=== PATIENT | male | born 1985 | race African-American/Black ===

== ENCOUNTER 2016-07-31 17:32 | Emergency (ER) | payer OTHER ==
[~2016-07-31] VITALS: Ht 167.6 cm; Wt 110.0 kg
[~2016-07-31 17:32] MED LIST: CHLO.12%30 SSP; CLIN150 PO; IBUP800T23 PO
[2016-07-31 17:34] VITALS: BP 130/62; PULSE 85; RESP 16; TEMP 97.8; O2SAT 98
[2016-07-31] MEDS ORDERED: DICL50TA3 PO (19:21)
[2016-07-31] MEDS ORDERED: CYCL1TAB29 PO (19:21)
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
[2016-07-31] MEDS ORDERED: CYCLOBENZAPRINE HCL 10 MG TAB PO ONE (19:30)
[2016-07-31] MEDS ORDERED: NAPROXEN 500 MG TAB PO ONE (19:30)
== END 2016-07-31 19:54 | disposition home or self-care (01) ==
LOC: NEPB 17:32
DX: S30.0XXA Contusion of lower back and pelvis, initial encounter (principal); S40.021A Contusion of right upper arm, initial encounter; V43.92XA Unspecified car occupant injured in collision with other type car in traffic accident, initial encounter
CPT/HCPCS: 99283

== ENCOUNTER 2016-09-07 00:19 | Emergency (ER) | payer SELFPAY ==
[~2016-09-07] VITALS: Ht 170.2 cm; Wt 106.0 kg
[~2016-09-07 00:19] MED LIST changes: +CYCL1TAB29 PO; +DICL50TA3 PO
[2016-09-07 00:23] VITALS: BP 140/74; PULSE 90; RESP 16; TEMP 97.5; O2SAT 100
[2016-09-07] MEDS ORDERED: HYDR-3533 PO (00:35)
[2016-09-07] MEDS ORDERED: AMOX500T PO (00:35)
--- NOTE | 2016-09-07 00:38 | PD ---
HPI Chief Complaint: Oral / Dental Pain or Problem Time Seen by Provider: 00:36 Travel History International Travel<30 days: No Contact w/Intl Traveler<30days: No Traveled to known affect area: No History of Present Illness HPI 31-year-old black male presents emergency Department with complaints of dental pain. He states that in the last 2 days she's had increasing left mandibular pain and swelling. He's had multiple dental caries in the past. Symptoms are moderate. He took one of his mother's Percocet earlier today for pain. He denies any fever or chills. No difficulty swallowing. No swelling of the floor mouth. PFSH Past Medical History Narrative Medical Dental abscess Tetanus Vaccination: < 5 Years Past Surgical History Surgical History: No Previous Surgery Social History Alcohol Use: Yes Tobacco Use: Yes Substance Use: No Allergies-Medications (Allergen,Severity, Reaction): Coded Allergies: No Known Allergies (Unverified , 09/07/16) Reported Meds & Prescriptions Reported Meds & Active Scripts Active Lortab (Hydrocodone-Acetaminophen) 5-325 Mg Tab 1 Tab PO Q4H PRN Amoxicillin 500 Mg Tab 1,000 Mg PO BID Flexeril (Cyclobenzaprine HCl) 10 Mg Tab 10 Mg PO TID Diclofenac Sodium DR (Diclofenac Sodium) 50 Mg Tabdr 50 Mg PO TID Ibuprofen 800 Mg Tab 800 Mg PO TID PRN Peridex Oral Rinse (Chlorhexidine Gluconate) 0.12 % Moni 15 Ml SSP BID 10 Days Cleocin (Clindamycin HCl) 150 Mg Cap 300 Mg PO Q6 10 Days Review of Systems Except as stated in HPI: all other systems reviewed are Neg General / Constitutional: No: Fever Eyes: No: Diploplia, Visual changes HENT: Positive: Dental Difficulties, No: Ear Discharge, Earache Cardiovascular: No: Chest Pain or Discomfort, Palpitations Respiratory: No: Cough, Shortness of Breath Gastrointestinal: No: Nausea, Vomiting Physical Exam Narrative GENERAL: Well-developed, well-nourished in no acute distress. Nontoxic appearing. HEAD: Patient has some mild swelling of the left lower mandible EYES: Pupils equal round and reactive. Extraocular motions intact. No scleral icterus. No injection or drainage. ENT: TMs clear without erythema. The external auditory canals clear. Nose: clear . Posterior pharynx is pink and moist. No tonsillar edema or exudate. Uvula midline. Airway patent. Patient has diffuse periodontal disease. He has multiple dental caries decayed to the gumline in the left lower mandible. There are some gingival edema, erythema and tenderness. There is some swelling of the mucosa. NECK: Trachea midline.Supple, nontender, moves head freely. No central bony tenderness or spasm. CARDIOVASCULAR: Regular rate and rhythm without murmurs, gallops, or rubs. RESPIRATORY: Clear to auscultation. Breath sounds equal bilaterally. No wheezes , rales, or rhonchi. GASTROINTESTINAL: Abdomen soft, non-tender, nondistended. No hepato-splenomegaly , or palpable masses. No guarding. EXTREMITIES: No clubbing, cyanosis, or edema. No joint tenderness, effusion, or edema noted. BACK: Nontender without deformity or crepitance. No flank tenderness. Data Data Last Documented VS Vital Signs Date Time Temp Pulse Resp B/P Pulse Ox O2 Delivery O2 Flow Rate FiO2 09/07/16 00:23 97.5 90 16 140/74 100 Room Air MDM Medical Decision Making Medical Screen Exam Complete: Yes Emergency Medical Condition: Yes Medical Record Reviewed: Yes Differential Diagnosis MDM: Moderate Differential diagnoses: Dental abscess, dental caries, osteitis, cellulitis Narrative Course Patient given amoxicillin 1 g by mouth and Lortab 5 a grams by mouth. Diagnosis Primary Impression: Dental abscess Additional Impression: Dental caries Patient Instructions: Narcotic given in the ED, General Instructions Additional Instructions: Rest. [place] gargles. [place] oil on cotton balls. 3 Advil every 6 hours. Amoxicillin and Lortab. follow-up with a dentist as soon as possible. And return to the ER if any problems. Med/Other Pt SpecificInfo: Prescription(s) given Scripts Hydrocodone-Acetaminophen (Lortab)5-325 Mg Tab1 Tab PO Q4H PRN (PAIN) #12 TAB Prov:Alvin France MD 09/07/16 Amoxicillin 500 Mg Tab1,000 Mg PO BID #40 TAB Prov:Alvin France MD 09/07/16 Disposition: 01 DISCHARGE HOME Condition: Stable Vinnie GimenezReba JERONIMO Sep 07, 2016 00:38
[2016-09-07] MEDS ORDERED: ACETAMINOPHEN/HYDROcodone 325 MG/5 MG TAB PO ONE (00:45)
[2016-09-07] MEDS ORDERED: AMOXICILLIN (TRIHYDRATE) 500 MG CAP PO ONE (00:45)
== END 2016-09-07 00:51 | disposition home or self-care (01) ==
LOC: NEPB 00:19
DX: K04.7 Periapical abscess without sinus (principal); K02.9 Dental caries, unspecified
CPT/HCPCS: 99282

== ENCOUNTER 2017-01-02 23:52 | Emergency (ER) | payer SELFPAY ==
[~2017-01-02 23:52] MED LIST changes: +AMOX500T PO; +HYDR-3533 PO
[2017-01-02 23:55] VITALS: BP 131/77; PULSE 123; RESP 16; TEMP 98.4; O2SAT 96
== END 2017-01-03 01:35 | disposition left against medical advice (07) ==
LOC: NED 23:52
DX: R22.0 Localized swelling, mass and lump, head (principal)
CPT/HCPCS: 99281

== ENCOUNTER 2017-01-05 19:57 | Emergency (ER) | payer SELFPAY ==
[2017-01-05 19:59] VITALS: BP 132/72; PULSE 89; RESP 16; TEMP 98.7; O2SAT 98
[2017-01-05] MEDS ORDERED: KETOROLAC TROMETHAMINE 60 MG/2 ML (IM) VIAL IM ONE (21:45)
[2017-01-05] MEDS ORDERED: CLINDAMYCIN 150 MG CAP PO ONE (21:45)
[2017-01-05] MEDS ORDERED: CLIN1CAP6 PO (21:59)
[2017-01-05] MEDS ORDERED: IBUP-232 PO (21:59)
[2017-01-05] MEDS ORDERED: PERC5TAB12 PO (21:59)
[2017-01-05] MEDS ORDERED: LACTCAP8 PO (21:59)
--- NOTE | 2017-01-05 22:09 | PD ---
HPI Chief Complaint: Facial Pain or Swelling Time Seen by Provider: 21:29 Travel History International Travel<30 days: No Contact w/Intl Traveler<30days: No Traveled to known affect area: No History of Present Illness HPI Patient is a 31-year-old male who presents to emergency with complaints of left- sided dental abscess. He reports that he had similar symptoms in August, reports that it started with the broken tooth, that he has not been able to follow-up with a dentist yet. Patient reports that on Wednesday, he noticed increased swelling into his left lower jaw. Patient denies any fevers or chills , reports increased pain and swelling to his left lower mandible. PFSH Past Medical History Medical History: Denies Significant Hx Diminished Hearing: No Past Surgical History Surgical History: No Previous Surgery Social History Alcohol Use: Yes Tobacco Use: Yes Substance Use: No Allergies-Medications (Allergen,Severity, Reaction): Coded Allergies: No Known Allergies (Unverified , 01/05/17) Reported Meds & Prescriptions Reported Meds & Active Scripts Active No Active Prescriptions or Reported Medications Review of Systems HENT: Positive: Other (tooth pain, left lower jaw pain) Physical Exam Narrative GENERAL: Well-nourished, well-developed patient. SKIN: Focused skin assessment warm/dry. HEAD: Normocephalic. EYES: No scleral icterus. No injection or drainage. NECK: Supple, trachea midline. No JVD or lymphadenopathy. Mouth: Patient with swelling to the left lower mandible, no trismus, patient with no airway involvement, uvula is midline with no swelling, airway is open and patent, patient with poor dentition and dental fractures to his lower posterior molars CARDIOVASCULAR: Regular rate and rhythm without murmurs, gallops, or rubs. RESPIRATORY: Breath sounds equal bilaterally. No accessory muscle use. GASTROINTESTINAL: Abdomen soft, non-tender, nondistended. Data Data Last Documented VS Vital Signs Date Time Temp Pulse Resp B/P Pulse Ox O2 Delivery O2 Flow Rate FiO2 01/05/17 19:59 98.7 89 16 132/72 98 Orders Ketorolac Inj (Toradol Inj) (01/05/17 21:45) Clindamycin (Cleocin) (01/05/17 21:45) MDM Medical Decision Making Medical Screen Exam Complete: Yes Emergency Medical Condition: Yes Interpretation(s) Vital Signs Date Time Temp Pulse Resp B/P Pulse Ox O2 Delivery O2 Flow Rate FiO2 01/05/17 19:59 98.7 89 16 132/72 98 Differential Diagnosis Differential includes dental abscess vs ludwigs angina (though unlikely), dental infection Narrative Course Patient is a 31-year-old male who presents to emergency with complaints of left- sided dental abscess. He reports that he had similar symptoms in August, reports that it started with the broken tooth, that he has not been able to follow-up with a dentist yet. Patient reports that on Wednesday, he noticed increased swelling into his left lower jaw. Patient denies any fevers or chills , reports increased pain and swelling to his left lower mandible. Vital Signs Date Time Temp Pulse Resp B/P Pulse Ox O2 Delivery O2 Flow Rate FiO2 01/05/17 19:59 98.7 89 16 132/72 98 Vital signs stable. Plan to start patient on clindamycin. Patient understands need to take probiotics with his antibiotics. Patient understood the importance of following up with a dentist as soon as possible. Patient will return to emergency room if he develops any fevers or chills or worsening symptoms. Diagnosis Primary Impression: Dental abscess Patient Instructions: General Instructions Additional Instructions: Please follow up with your dentist as soon as possible Please take full course of antibiotics Return to ER if symptoms worsen or progress or if you develop fever/chills Return to ER as needed Do not drive or operate heavy machinery while taking narcotic pain medications Med/Other Pt SpecificInfo: Prescription(s) given Scripts Oxycodone-Acetaminophen (Percocet)5-325 mg Tab1 Tab PO Q6H PRN (PAIN) #12 TAB Ref 0 Prov:Neena Cherry DO 01/05/17 Ibuprofen 600 Mg [id number] Mg PO Q6H PRN (Pain/Inflammation) #40 TAB Ref 0 Prov:Neena Cherry DO 01/05/17 Lactobacillus Acidophilus (Probiotic)1 Cap Cap1 Cap PO TIDAC #30 CAP Ref 0 Prov:Neena Cherry DO 01/05/17 Clindamycin 300 Mg [id number] Mg PO Q6H 10 Days Ref 0 Prov:Neena Cherry DO 01/05/17 Disposition: 01 DISCHARGE HOME Condition: Stable Neena Cherry DO Jan 05, 2017 22:09
[2017-01-05] MEDS ORDERED: TETANUS/DIPHTHERIA TOXOID ADULT 0.5 ML VIAL IM ONE (22:15)
== END 2017-01-05 22:33 | disposition home or self-care (01) ==
LOC: NEPD 19:57
DX: K04.7 Periapical abscess without sinus (principal); Z23 Encounter for immunization; Z72.0 Tobacco use
CPT/HCPCS: 90471; 90714; 96372

== ENCOUNTER 2017-01-25 20:49 | Emergency (ER) | payer SELFPAY ==
[~2017-01-25 20:49] MED LIST changes: -AMOX500T PO; -CHLO.12%30 SSP; -CLIN150 PO; +CLIN1CAP6 PO; -CYCL1TAB29 PO; -DICL50TA3 PO; -HYDR-3533 PO; +IBUP-232 PO; -IBUP800T23 PO; +LACTCAP8 PO; +PERC5TAB12 PO
[2017-01-25 20:50] VITALS: BP 131/69; PULSE 114; RESP 16; TEMP 99.5; O2SAT 96
== END 2017-01-25 21:49 | disposition left against medical advice (07) ==
LOC: NED 20:49
DX: J02.9 Acute pharyngitis, unspecified (principal)
CPT/HCPCS: 99281

== ENCOUNTER 2017-03-26 05:51 | Emergency (ER) | payer SELFPAY ==
[~2017-03-26] VITALS: Ht 170.2 cm; Wt 113.5 kg
[2017-03-26 05:54] VITALS: BP 143/68; PULSE 97; RESP 16; TEMP 98.3; O2SAT 98
--- NOTE | 2017-03-26 06:12 | PD ---
HPI Chief Complaint: Injury Time Seen by Provider: 06:02 Travel History International Travel<30 days: No Contact w/Intl Traveler<30days: No Traveled to known affect area: No History of Present Illness HPI The patient is a 32-year-old [place] male who presents to the emergency department for left shoulder pain. The patient was wrestling with his roommate earlier tonight approximately 1 AM when he fell on his left shoulder and heard a "pop". The patient complains of pain over the superior aspect left shoulder that is worse with movement but still present at rest. The patient thinks he may have previously hurt his shoulder when he was in high school complaint football. He denies any previous dislocations to the left shoulder or fractures of the left clavicle or left humerus. The patient is right-hand dominant. He denies any current headache, neck pain, or weakness to left upper extremity. Patient's pain is moderate, worse with movement, slightly alleviated at rest. He denies any numbness or tingling of the left upper extremity. [facility] Past Medical History Medical History: Denies Significant Hx Diminished Hearing: No Tetanus Vaccination: < 5 Years Influenza Vaccination: Yes Past Surgical History Surgical History: No Previous Surgery Social History Alcohol Use: Yes Tobacco Use: Yes Substance Use: No Allergies-Medications (Allergen,Severity, Reaction): Coded Allergies: No Known Allergies (Unverified , 03/26/17) Reported Meds & Prescriptions Reported Meds & Active Scripts Active Review of Systems Except as stated in HPI: all other systems reviewed are Neg HENT: No: Headaches, Neck Pain Cardiovascular: No: Chest Pain or Discomfort Respiratory: No: Shortness of Breath Gastrointestinal: No: Nausea, Vomiting Musculoskeletal: Positive: Limited ROM, Pain Neurologic: No: Paresthesia, Sensory Disturbance Physical Exam Narrative GENERAL: Awake, alert, pleasant 32-year-old male who appears his stated age and is in no acute respiratory distress. SKIN: Focused skin assessment warm/dry. Multiple tattoos noted. HEAD: Atraumatic. Normocephalic. EYES: No injection or drainage. ENT: No nasal bleeding or discharge. Breath smells of alcohol. NECK: Trachea midline. No JVD. MUSCULOSKELETAL: Patient has tenderness to palpation over the left acromioclavicular joint. No tenderness of the proximal two thirds of the left clavicle. He is able to abduct the shoulder on the left to 45. He is able flex and extend the left elbow, but has limited range of motion with extension left shoulder. He is able flex and extend the left hand. Intrinsic hand muscles are intact on the left hand. Positive left radial pulse. NEUROLOGICAL: Awake and alert. No obvious cranial nerve deficits. Motor grossly within normal limits. Normal speech. Sensation is intact with radial, median, and ulnar distribution of the left hand. PSYCHIATRIC: Appropriate mood and affect; insight and judgment normal. Data Data Last Documented VS Vital Signs Date Time Temp Pulse Resp B/P (MAP) Pulse Ox O2 Delivery O2 Flow Rate FiO2 03/26/17 05:54 98.3 97 16 143/68 (93) 98 Room Air Orders Orders Shoulder, Limited(2vws) (03/26/17 ) Ibuprofen (Advil) (03/26/17 06:15) MDM Medical Decision Making Medical Screen Exam Complete: Yes Emergency Medical Condition: Yes Medical Record Reviewed: Yes Interpretation(s) X-ray the left shoulder reveals acromioclavicular joint separation. Differential Diagnosis Differential diagnosis includes acromioclavicular separation, clavicle fracture , dislocation, subluxation, fracture, hematoma, contusion, sprain, strain. Narrative Course X-ray of the left shoulder was obtained. The patient was administered ibuprofen 600 mg orally for pain. X-ray reveals acromioclavicular joint separation. The patient was placed in a sling. The patient will be discharged on pain medications, is advised ice the area, activity as tolerated, follow-up with orthopedics. Diagnosis Primary Impression: Acromioclavicular joint separation Qualified Codes: S43.102A - Unspecified dislocation of left acromioclavicular joint, initial encounter Patient Instructions: General Instructions Additional Instructions: Sling as directed. Range of motion exercises daily. Ice to the affected area. Pain medications as directed. Follow-up with orthopedics. Med/Other Pt SpecificInfo: Prescription(s) given Scripts Hydrocodone-Acetaminophen ([place]) 5-325 mg Tab 1 TAB PO Q6H Y for PAIN, #12 TAB 0 Refills Prov: Alvin France MD 03/26/17 Ibuprofen (Ibuprofen) 600 Mg Tab 600 MG PO Q6H Y for Pain/Inflammation, #20 TAB 0 Refills Prov: Alvin France MD 03/26/17 Disposition: 01 DISCHARGE HOME Condition: Stable Alvin France MD Mar 26, 2017 06:12
[2017-03-26] MEDS ORDERED: IBUPROFEN 200 MG TAB PO ONE (06:15)
--- NOTE | 2017-03-26 06:33 | RADRPT ---
EXAM DATE/TIME: 03/26/2017 06:20 [facility] COMPARISON: No previous studies available for comparison. INDICATIONS : Left shoulder pain due to trauma. MEDICAL HISTORY : None. SURGICAL HISTORY : None. ENCOUNTER: Initial ACUITY: 1 day PAIN SCORE: 10/10 LOCATION: Left upper extremity Shoulder FINDINGS: 2 views of left shoulder show mild elevation of the distal clavicle relative to the acromion. The cor acoclavicular and acromioclavicular distances are preserved. No acute fractures. Glenohumeral joint u nremarkable. Soft tissues are unremarkable. CONCLUSION: A.c. joint separation. Luis Beckham Jr., MD on March 26, 2017 at 6:30 Board Certified Radiologist. This report was verified electronically.
[2017-03-26] MEDS ORDERED: NORC5TAB PO (06:45)
[2017-03-26] MEDS ORDERED: IBUP-232 PO (06:45)
== END 2017-03-26 07:07 | disposition home or self-care (01) ==
LOC: NEPE 05:51
DX: S43.102A Unspecified dislocation of left acromioclavicular joint, initial encounter (principal); Z72.0 Tobacco use; Y93.72 Activity, wrestling
CPT/HCPCS: 73030; 99283

== ENCOUNTER 2017-04-06 01:23 | Emergency (ER) | payer SELFPAY ==
[~2017-04-06 01:23] MED LIST changes: -CLIN1CAP6 PO; -LACTCAP8 PO; +NORC5TAB PO; -PERC5TAB12 PO
[2017-04-06 01:25] VITALS: BP 131/72; PULSE 90; RESP 16; TEMP 98.1; O2SAT 97
--- NOTE | 2017-04-06 02:11 | PD ---
HPI Chief Complaint: Injury Time Seen by Provider: 02:06 Travel History International Travel<30 days: No Contact w/Intl Traveler<30days: No Traveled to known affect area: No History of Present Illness HPI Patient is a 32-year-old male presenting to emergency for evaluation of left shoulder pain. Patient states he injured it over week ago while wrestling. He reports being evaluated in the emergency department however the pain persists. Patient states that he cannot lay on his left side. He reports his pain is a 7 out of 10 and describes as aching and sore. Patient was provided with a sling which he said he does not wear all the time because he was worried about ecchymosis shoulder. He denies any weakness or numbness. PFSH Past Medical History Medical History: Denies Significant Hx Diminished Hearing: No Social History Alcohol Use: Yes Tobacco Use: Yes (1.5 pck/day) Substance Use: No Allergies-Medications (Allergen,Severity, Reaction): Coded Allergies: No Known Allergies (Unverified , 04/06/17) Reported Meds & Prescriptions Reported Meds & Active Scripts Active [place] (Hydrocodone-Acetaminophen) 5-325 mg Tab 1 Tab PO Q6H PRN Ibuprofen 600 Mg Tab 600 Mg PO Q6H PRN Review of Systems Except as stated in HPI: all other systems reviewed are Neg Musculoskeletal: Positive: Myalgias, Pain Physical Exam Narrative GENERAL: Well-developed, well-nourished, alert gentleman. Respiratory no acute distress. SKIN: Warm and dry. HEAD: Normocephalic. EYES: No scleral icterus. No injection or drainage. NECK: Supple, trachea midline. No JVD or lymphadenopathy. CARDIOVASCULAR: Regular rate and rhythm without murmurs, gallops, or rubs. RESPIRATORY: Breath sounds equal bilaterally. No accessory muscle use. GASTROINTESTINAL: Abdomen soft, non-tender, nondistended. MUSCULOSKELETAL: No cyanosis, or edema. 5/5 muscle strength in bilateral upper extremities. Decreased range of motion with abduction of the left shoulder. 2 + radial pulse, brisk is a 3 second capillary refill. BACK: Nontender without obvious deformity. No CVA tenderness. Data Data Last Documented VS Vital Signs Date Time Temp Pulse Resp B/P (MAP) Pulse Ox O2 Delivery O2 Flow Rate FiO2 04/06/17 01:25 98.1 90 16 131/72 (91) 97 MDM Medical Decision Making Medical Screen Exam Complete: Yes Emergency Medical Condition: Yes Medical Record Reviewed: Yes Interpretation(s) Vital Signs Date Time Temp Pulse Resp B/P (MAP) Pulse Ox O2 Delivery O2 Flow Rate FiO2 04/06/17 01:25 98.1 90 16 131/72 (91) 97 Differential Diagnosis Sprain versus strain versus before meals separation versus fracture versus other Narrative Course Patient is a 32-year-old male that presented for reevaluation of left shoulder pain. Patient was seen and evaluated on 03/26/17 x-rays were performed at that time which shows an before meals joint separation. Patient was given Lortab and ibuprofen and advised to follow-up with orthopedic surgery. Patient was advised that he needs to follow up with her primary doctor for possible referral to physical therapy and/or orthopedic surgeon. He was encouraged to utilize the sling to help support the shoulder however he was strongly advised to remove the sling and perform gentle range of motion exercises to prevent frozen shoulder. He was further encouraged to take [id number] acetaminophen or ibuprofen needed and as directed for pain. He was also encouraged to apply topical analgesic such as BenGay or Biofreeze. A medical screening exam was performed: At the time of evaluation the presenting medical condition was determined not to be of an emergent nature. The patient was given the option of receiving additional care, but declined. Patient was given options for additional community resources from which to obtain care. The Patient Has Been advised to seek medical attention for their presenting complaint. The patient has been advised to return to the ER at any time if an emergent condition develops. Diagnosis Primary Impression: Encounter for medical screening examination Condition: Stable Rosalba Forman IMAGING AIDE Apr 06, 2017 02:11
== END 2017-04-06 02:18 | disposition left against medical advice (07) ==
LOC: NEPD 01:23
DX: M25.512 Pain in left shoulder (principal)
CPT/HCPCS: 99281

== ENCOUNTER 2017-06-06 20:20 | Emergency (ER) | payer SELFPAY ==
[~2017-06-06] VITALS: Ht 170.2 cm; Wt 100.0 kg
[2017-06-06 20:21] VITALS: BP 108/56; PULSE 79; RESP 16; TEMP 98.6; O2SAT 98
--- NOTE | 2017-06-06 21:14 | PD ---
HPI Chief Complaint: Pain: Acute or Chronic Time Seen by Provider: 21:14 Travel History International Travel<30 days: No Contact w/Intl Traveler<30days: No Traveled to known affect area: No History of Present Illness HPI 32-year-old male came to the emergency room with history of shoulder pain that has been going on for past 3 months. Says that he was in the emergency room 3 months ago when he was diagnosed with AC joint separation. He has not followed up with the orthopedist surgeon. Patient does not have a primary care either and does not have insurance. He says now his shoulder really bothers him and he is having trouble sleeping on that side. He also says that his throat hurts when he swallows especially on the left side. No new injuries. Vital signs were stable. [facility] Past Medical History Narrative Medical List of his past medical, surgical, social and family history is reviewed from the nursing note. Medical History: Denies Significant Hx Diminished Hearing: No Social History Alcohol Use: Yes Tobacco Use: Yes (1.5 pck/day) Substance Use: No Allergies-Medications (Allergen,Severity, Reaction): Coded Allergies: No Known Allergies (Unverified Adverse Reaction, Unknown, 06/06/17) Comments No known drug allergies. Reported Meds & Prescriptions Reported Meds & Active Scripts Active No Active Prescriptions or Reported Medications Narrative Medication List of his home medications reviewed from the nursing note. Review of Systems Except as stated in HPI: all other systems reviewed are Neg HENT: Positive: Sore Throat Musculoskeletal: Positive: Pain Physical Exam Narrative GENERAL: Awake, alert, mild distress SKIN: Focused skin assessment warm/dry. HEAD: Atraumatic. Normocephalic. EYES: Pupils equal and round. No scleral icterus. No injection or drainage. ENT: No nasal bleeding or discharge. Mucous membranes pink and moist. Slight erythema and exudates on the pharynx. NECK: Trachea midline. No JVD. CARDIOVASCULAR: Regular rate and rhythm. No murmur appreciated. RESPIRATORY: No accessory muscle use. Clear to auscultation. Breath sounds equal bilaterally. GASTROINTESTINAL: Abdomen soft, non-tender, nondistended. Hepatic and splenic margins not palpable. MUSCULOSKELETAL: No obvious deformities. No clubbing. No cyanosis. No edema. Left shoulder pain with animal he decreased range of motion especially on abduction. Distal neurovascular intact. NEUROLOGICAL: Awake and alert. No obvious cranial nerve deficits. Motor grossly within normal limits. Normal speech. PSYCHIATRIC: Appropriate mood and affect; insight and judgment normal. Data Data Last Documented VS Orders Orders Ibuprofen (Motrin) (06/06/17 21:30) Group A Rapid Strep Screen (06/06/17 21:24) Strep Culture (Group A) (06/06/17 21:30) MDM Medical Decision Making Medical Screen Exam Complete: Yes Emergency Medical Condition: Yes Medical Record Reviewed: Yes Differential Diagnosis Strep pharyngitis, AC joint arthritis, chronic shoulder pain Narrative Course 10:10 PM rapid strep is pending. However patient wants to go home. He says he has to go to work. He is in full capacity to make decisions for himself. He does realize without the test result I could not treat him. I have also explained to him that he needs to follow up with an orthopedist for his chronic shoulder pain. Patient was given Motrin for his pain initially when he came in. Procedures EKG Prior to Arrival: No Diagnosis Primary Impression: Chronic shoulder pain Qualified Codes: M25.512 - Pain in left shoulder; G89.29 - Other chronic pain Additional Impression: Sore throat Scripts No Active Prescriptions or Reported Meds Disposition: 07 AGAINST MEDICAL ADVICE Condition: Serious Steph Hernandez MD Jun 06, 2017 21:14
[2017-06-06] MEDS ORDERED: IBUPROFEN 800 MG TAB PO ONE (21:30)
== END 2017-06-06 22:16 | disposition left against medical advice (07) ==
LOC: NEPD 20:20
DX: M25.512 Pain in left shoulder (principal); G89.29 Other chronic pain; J02.9 Acute pharyngitis, unspecified; F17.200 Nicotine dependence, unspecified, uncomplicated
CPT/HCPCS: 87081; 87880; 99282